=== PATIENT | male | born 1975 | race Caucasian/White ===

== ENCOUNTER 2020-05-27 07:26 | Outpatient (CLI) | payer BC ==
[2020-05-27] MEDS ORDERED: Gadobenate Dimeglumine 529 MG/1 ML (20ML VIAL) ONE (08:10)
[2020-05-27] MEDS ORDERED: Iopamidol 300 61% 50 ML VIAL FS ONE (08:10)
[2020-05-27] MEDS ORDERED: Lidocaine 1% PF 10 ML AMP ONE (08:10)
[2020-05-27] MEDS ORDERED: EPINEPHrine 1 MG/ML AMP ONE (08:10)
--- NOTE | 2020-05-27 08:59 | RAD ---
Right shoulder arthrogram fluoroscopic guided HISTORY: Internal derangement. FINDINGS: After explaining the procedure and answering all questions, the anterior aspect of the [facility] t shoulder was prepped and draped in usual sterile fashion. Sterile technique, buffered local anesthesia, fluoroscopic guidance, and an anterior approach were us ed to carefully advance the tip of a 22-gauge spinal needle to the joint capsule at the level of the humeral head. A total volume of 8 cc liquid containing normal saline, 1% lidocaine, iodinated contrast, and small a lang of gadolinium and epinephrine were then instilled into the joint capsule under fluoroscopic control. Needle was removed and spot images obtained. Contrast remained within the joint capsule. Patient tolerated the procedure well and was transferred to MRI in good condition for further imaging . IMPRESSION : Technically successful right shoulder arthrogram. MRI is pending.
--- NOTE | 2020-05-27 10:32 | MRI ---
MRI ARTHROGRAM OF THE RIGHT SHOULDER: INDICATION: Right shoulder pain and weakness. COMPARISON: Right shoulder arthrogram radiographs dated 05/27/2020. TECHNIQUE: Multiplanar, multisequence MR images were obtained of the right shoulder following intraarticular adm inistration of a dilute Gadolinium solution. Please see the separately dictated right shoulder arthr ogram for the details concerning the injection technique. FINDINGS: The rotator cuff is intact. A small amount of fluid is seen within the subacromial subdeltoid bursa. No muscular atrophy is evident. The AC joint is mildly degenerative. The acromion is a type 2 acr omion without evidence of an os acromiale. There is an abnormal tear involving the anterior superior , superior, posterior superior, and posterior glenoid labrum extending from approximately the 1 o'hemant ck through the 8 o'clock position. Glenohumeral articular surface is normal-appearing. The anterior inferior glenohumeral labral ligamentous complex is intact. The biceps tendon is located within the bicipital groove. The biceps anchor complex is intact. IMPRESSION: 1. Long segment superior labrum anterior to posterior tear extending from the anterior superior thro ugh the posterior inferior glenoid labrum. 2. A small amount of fluid in the subacromial subdeltoid bursa may reflect a mild bursitis. 3. Mild AC joint osteoarthrosis. 4. No evidence for rotator cuff tear. POS: BH
== END 2020-05-27 07:27 | disposition home or self-care (01) ==
LOC: RAD 07:26
PROVIDERS: ATTEND Orthopaedic Surgery
DX: M25.511 Pain in right shoulder (principal); M19.011 Primary osteoarthritis, right shoulder
CPT/HCPCS: 23350; A9577; J0171; J2001; Q9967

== ENCOUNTER 2020-08-25 06:48 | Outpatient (CLI) | payer BC ==
[2020-08-25 14:54] LABS: Anion Gap 12 mmol/L (10-20); BUN (Urea Nitrogen) 9 mg/dL (8.9-20.6); Calc. Creatinine Clearance 0 mL/min (70-130); Calcium 9.2 mg/dL (7.8-10.44); Carbon Dioxide 29 mmol/L (22-29); Chloride 104 mmol/L (98-107); Glucose 124 mg/dL (70-105); Potassium 3.9 mmol/L (3.5-5.1); Sodium 141 mmol/L (136-145)
[2020-08-25 15:09] LABS: #Eosinphils 0.2 10x3/uL (0.0-0.5); #Monocytes 0.7 10x3/uL (0.0-1.1); #Neutrophils 3.9 10x3/uL (1.5-8.4); %Basophils 0.4 % (0.0-2.0); %Eosinophils 2.1 % (0.0-6.0); %Lymphocytes 35.2 % (18.0-47.0); %Monocytes 9.1 % (0.0-10.0); %Neutrophils 53.1 % (40.0-75.0); Hemoglobin 14.9 g/dL (14.0-18.0); Mean Corpuscular HGB CONC 32.3 G/DL (32.0-36.0); Mean Corpuscular Hemoglobin 28.3 PG (27.0-33.0); Mean Corpuscular Volume 87.6 fl (80.0-100.0); Mean Platelet Volume 10.8 fl (7.4-10.4); Platelet Count 173 10x3/uL (130-400); RBC Distribution Width 12.5 % (11.5-14.5); Red Blood Cell (RBC) Count 5.26 10x6/uL (4.40-5.80); White Blood Cell (WBC) Count 7.3 10x3/uL (4.5-11.0)
[2020-08-26 02:23] LABS: SARS-CoV-2 MS2 Positive; SARS-CoV-2 N Gene Negative; SARS-CoV-2 S Gene Negative; SARS-CoV-2 by NAA Not Detected (NotDetected); SARS-CoV-2 orf1ab Negative
== END 2020-08-25 06:49 | disposition home or self-care (01) ==
LOC: LABBT 06:48
PROVIDERS: ATTEND Orthopaedic Surgery
DX: Z01.818 Encounter for other preprocedural examination (principal); S43.401A Unspecified sprain of right shoulder joint, initial encounter; Z20.822 Contact with and (suspected) exposure to COVID-19
CPT/HCPCS: 80048; 85025; 87635; 93005; 93010; U0003

== ENCOUNTER 2020-08-28 06:05 | Day surgery (SDC) | payer BC, OTHER ==
[2020-08-26 11:53] VITALS: BMI 31.1
[2020-08-28] MEDS ORDERED: Lidocaine 1% (PF) 30 ML VIAL ONE (07:06)
[2020-08-28] MEDS ORDERED: Midazolam HCl 2 mg/2 ml Vial ONE (07:06)
[2020-08-28] MEDS ORDERED: Fentanyl 100 MCG/2 ML VIAL ONE (07:06)
[2020-08-28] MEDS ORDERED: Promethazine HCl 25 MG/ML VIAL IM PRN (08:00)
[2020-08-28] MEDS ORDERED: Ondansetron PF 4 MG/2 ML Vial IVP PRN (08:00)
[2020-08-28] MEDS ORDERED: Zolpidem Tartrate 5 MG TAB PO PRN (08:00)
[2020-08-28] MEDS ORDERED: traMADol HCl 50 MG TAB PO PRN ×2 (08:00)
[2020-08-28] MEDS ORDERED: HYDROcodone/Acetaminophen 10/325 mg Tablet PO PRN ×2 (08:00)
[2020-08-28] MEDS ORDERED: Ropivacaine HCl/PF 250 ML in Premix Bag 1 BAG NERVE BLCK SCH (08:00)
[2020-08-28] MEDS ORDERED: Lidocaine 2% w/Epinephrine 1:200K 20 ML VIAL ONE (08:04)
[2020-08-28] MEDS ORDERED: Ropivacaine 0.2% 550 ML 550 ML NERVE BLCK SCH (09:30)
[2020-08-28] MEDS ORDERED: Rocuronium Bromide 10 MG/ML (10ML VIAL) ONE (09:44)
[2020-08-28] MEDS ORDERED: Ropivacaine 0.5% HCl/PF (150 MG/30 ML VIAL) ONE (09:44)
[2020-08-28] MEDS ORDERED: PROPOFOL 200 MG/20 ML VIAL ONE (09:44)
[2020-08-28] MEDS ORDERED: Dexamethasone 20 MG/5 ML VIAL ONE (09:44)
[2020-08-28] MEDS ORDERED: Ondansetron PF 4 MG/2 ML Vial ONE (09:44)
[2020-08-28] MEDS ORDERED: Ketorolac Tromethamine 30 MG/ML VIAL ONE (09:44)
[2020-08-28] MEDS ORDERED: Ketorolac Tromethamine 30 MG/ML VIAL IVP SCH (12:00)
--- NOTE | 2020-08-29 05:37 | OP ---
DATE OF PROCEDURE: 08/28/2020 PREOPERATIVE DIAGNOSIS: 1. Right shoulder degenerative labral tear to include superior and posterior superior labrum. 2. Small partial undersurface rotator cuff tear. POSTOPERATIVE DIAGNOSES: 1. Right shoulder degenerative labral tear to include superior and posterior superior labrum. 2. Small partial undersurface rotator cuff tear. PROCEDURES PERFORMED: 1. Right shoulder arthroscopy with debridement and shaving of degenerative labral tear as well as partial rotator cuff tear. 2. Open biceps tenodesis. TECH WRITER: Davey Tesfaye PA-C COMPLICATIONS: There were no complications. ESTIMATED BLOOD LOSS: Minimal. ANESTHESIA: The patient had general anesthetic as well as a preoperative block. IMPLANTS: We used a 7 x 20 BioComposite Bio-Tenodesis screw for fixation of the biceps. DISPOSITION: He did go to recovery room in stable condition. INDICATIONS: This is a 44-year-old male, who has had significant problems with his right shoulder for years. 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 DESCRIPTION OF PROCEDURE: After all appropriate consent forms were explained and signed, he was taken to the operative room and at this time was given general anesthetic. Once the level of anesthesia was appropriate, he was rolled into the left lateral decubitus position with all bony prominences well padded. An axillary roll was placed underneath the left axilla and a beanbag inflated to hold in this position. The arm was taken through full range of motion without any problem. The arm was then suspended with 15 pounds in standard fashion. The right shoulder and upper extremity were than prepped and draped in standard surgical fashion. Bony anatomical landmarks were drawn out and the subacromial space was infiltrated with lidocaine with epinephrine. Posterior portal was then established. Scope was placed into the shoulder joint. Anterior working portal was then made using a needle localization technique. Diagnostic arthroscopy commenced in the glenohumeral joint. The articular surface of the humeral head and glenoid were in excellent condition. There were no loose bodies noted in the axillary pouch. Subscapularis was found to be intact. The superior labrum was found to be completely degenerative and very atretic in appearance. Biceps tendon was found to be unstable at its insertion. This tearing continued around the posterior superior labrum. We also noted a small partial undersurface tear, felt to be the back part of supraspinatus and beginning of infraspinatus. At this time, anterior working portal was made and a shaver was introduced and the labrum as well as a partial cuff tear was debrided with a shaver back to a stable base. He has minimal thickness of the rotator cuff and the labrum was found overall to be in decent condition. Once this was debrided, again, the superior portion was just very significantly atretic and lacking substance. At this time, we then pierced the biceps tendon with an 18-gauge needle and placed the sutures through it. This was brought out the anterior portal. Arthroscopic scissors were used to cut the biceps tendon insertion. This area was then debrided with a shaver. We then repositioned in the subacromial space and made a lateral working portal. Shaver was used to remove the copious amount of bursa and any brisk venous bleeding was coagulated. No bony decompression was performed as no significant extra bone was noted. Rotator cuff was intact. Once this was done, the scope was removed and shoulder was drained. A 10 blade was used to make incision down through skin only and Bovie was used to coagulate any brisk venous bleeding. We then opened up our deltoid fascia sharply. We then dissected down with our fingers, split the deltoid fibers in line and got down to the underlying transverse humeral ligament. Once this was done, we were able to open up our bicipital groove and pull the tendon out into the wound. This was then sutured and the intra-articular portion was cut off and removed from the field. We then placed our pin, reamed with our reamer and placed a 7 x 20 Bio[employer]posite Bio-Tenodesis screw in standard fashion. Once this was done, we thoroughly irrigated and dried. We also had tied the sutures upon themselves so that the screw could not back out. We then thoroughly irrigated and dried. We allowed the deltoid to close upon itself. We ran a Vicryl to close our deltoid fascia and we then used 2-0 Vicryl and sutures to close our skin incision as well as our portals. At this time, a bulky sterile dressing was applied. The patient was awakened and taken to recovery room in stable condition. All counts were correct at the end of the case and he did receive preoperative IV antibiotics. Job ID: [id number]
== END 2020-08-28 11:03 | disposition home or self-care (01) ==
LOC: SDC 06:05
PROVIDERS: ATTEND Orthopaedic Surgery
PROC: 0LQ14ZZ Repair Right Shoulder Tendon, Percutaneous Endoscopic Approach (ICD-10-PCS; principal; 2020-08-28)
PROC: 3E0T3BZ Introduction of Anesthetic Agent into Peripheral Nerves and Plexi, Percutaneous Approach (ICD-10-PCS; principal; 2020-08-28)
PROC: 0LS30ZZ Reposition Right Upper Arm Tendon, Open Approach (ICD-10-PCS; principal; 2020-08-28)
DX: M75.111 Incomplete rotator cuff tear or rupture of right shoulder, not specified as traumatic (principal); M24.111 Other articular cartilage disorders, right shoulder; S43.431A Superior glenoid labrum lesion of right shoulder, initial encounter; G89.18 Other acute postprocedural pain; J45.909 Unspecified asthma, uncomplicated; Z79.899 Other long term (current) drug therapy; Z87.891 Personal history of nicotine dependence
CPT/HCPCS: A4306; C1713; J0690; J1100; J1885; J2001; J2250; J2405; J2704; J2795; J3010

== ENCOUNTER 2020-10-22 11:19 | Emergency (ER) | payer BC ==
--- NOTE | 2020-10-22 12:07 | RAD ---
Exam: Chest one view HISTORY:Chest pain and shortness of breath Comparison: 09/12/2016 FINDINGS: Cardiac silhouette: Normal Aorta: Unremarkable Pulmonary vessels: Normal Costophrenic angles: Clear LUNGS: Scattered interstitial and alveolar opacities. Pneumothorax: None Osseous abnormalities: None IMPRESSION: Scattered interstitial and alveolar opacities. Correlate for multi lobar pneumonia. Evalu ate patient's COVID status
[2020-10-22 12:11] LABS: #Lymphocytes 1.3 thou/uL (1.20-3.40); #Monocytes 0.6 thou/uL (0.11-0.59); #Neutrophils 3.1 thou/uL (1.40-6.50); %Basophils 0.3 % (0.0-1.0); %Eosinophils 0.5 % (0.0-10.0); %Lymphocytes 25.5 % (21.0-51.0); %Monocytes 11.9 % (0.0-10.0); %Neutrophils 61.7 % (42.0-75.0); Hemoglobin 15.3 g/dL (14.0-18.0); Mean Corpuscular HGB CONC 33.3 g/dL (32.0-36.0); Mean Corpuscular Hemoglobin 29.5 pg (27.0-31.0); Mean Corpuscular Volume 88.4 fL (78.0-98.0); Mean Platelet Volume 8.9 fL (7.4-10.4); Platelet Count 104 thou/uL (130-400); RBC Distribution Width 11.5 % (11.5-14.5); Red Blood Cell (RBC) Count 5.21 mill/uL (4.70-6.10)
[2020-10-22 12:27] LABS: ALT (SGPT) 10 U/L (8-55); AST (SGOT) 13 U/L (5-34); Albumin 4.2 g/dL (3.5-5.0); Alkaline Phosphatase 92 U/L (40-110); Anion Gap 12 mmol/L (10-20); BUN (Urea Nitrogen) 11 mg/dL (8.9-20.6); Bilirubin, Total 0.4 mg/dL (0.2-1.2); Calc. Creatinine Clearance 0 mL/min (70-130); Calcium 8.5 mg/dL (7.8-10.44); Carbon Dioxide 26 mmol/L (22-29); Chloride 104 mmol/L (98-107); Globulin 2.8 g/dL (2.4-3.5); Glucose 96 mg/dL (70-105); Platelet Morphology Comment Appears Decreased; Potassium 4.4 mmol/L (3.5-5.1); RBC Morphology Normal; Sodium 138 mmol/L (136-145)
--- NOTE | 2020-10-24 15:41 | EKG ---
Test Reason : CHEST PAIN Blood Pressure : / mmHG Vent. Rate : 082 BPM Atrial Rate : 082 BPM P-R Int : 148 ms QRS Dur : 092 ms QT Int : 370 ms P-R-T Axes : 071 089 023 degrees QTc Int : 432 ms Normal sinus rhythm Possible Left atrial enlargement Borderline ECG Confirmed by JUNIOR BARBOSA DO ([id number]), associate entertainment editor FRANKO GONGORA ([id number] on 10/24/2020 3:41:28 PM Referred By: Confirmed By:JUNIOR BARBOSA DO
== END 2020-10-22 13:50 | disposition home or self-care (01) ==
LOC: ERS 11:19
DX: U07.1 COVID-19 (principal); J12.82 Pneumonia due to coronavirus disease 2019
CPT/HCPCS: 71045; 80053; 84484; 85025; 85379; 93005

== ENCOUNTER 2020-11-04 11:10 | Outpatient (CLI) | payer BC | END 2020-11-04 11:11 | disposition home or self-care (01) | LOC: RAD 11:10 | PROVIDERS: ATTEND Family Medicine | DX: J18.9 Pneumonia, unspecified organism (principal) | CPT/HCPCS: 71046 ==

== ENCOUNTER 2021-06-04 08:48 | Outpatient (CLI) | payer BC | END 2021-06-04 08:49 | disposition home or self-care (01) | LOC: RAD 08:48 | PROVIDERS: ATTEND Internal Medicine Critical Care Medicine | DX: R06.00 Dyspnea, unspecified (principal) | CPT/HCPCS: 71046 ==

== ENCOUNTER 2024-04-29 06:06 | Day surgery (SDC) | payer BC ==
[2024-04-23 10:29] VITALS: BMI 29.8
[2024-04-29] MEDS ORDERED: Sodium Chloride 0.9% 100 ML ONE (06:59)
[2024-04-29] MEDS ORDERED: CEFAZOLIN 2 GM VIAL ONE (06:59)
[2024-04-29] MEDS ORDERED: Iopamidol 30 ML ONE (07:15)
[2024-04-29] MEDS ORDERED: fentaNYL PF 100 MCG/2 ML SYRINGE ONE (07:24)
[2024-04-29] MEDS ORDERED: PROPOFOL 20 ML ONE (07:24)
[2024-04-29] MEDS ORDERED: Midazolam HCl 2 mg/2 ml Vial ONE (07:24)
[2024-04-29] MEDS ORDERED: PHENYLEPHRINE-NS 100 MCG/ML 10 ML SYRINGE ONE (07:44)
[2024-04-29] MEDS ORDERED: Dexmedetomidine 200 MCG/2 ML VIAL ONE (07:45)
[2024-04-29] MEDS ORDERED: Dexamethasone 20 MG/5 ML VIAL ONE (08:00)
[2024-04-29] MEDS ORDERED: Ondansetron PF 4 MG/2 ML Vial ONE (08:00)
[2024-04-29] MEDS ORDERED: diphenhydrAMINE 50 MG/ML VIAL ONE (08:00)
[2024-04-29] MEDS ORDERED: Ketorolac Tromethamine 30 MG (1 mL) VIAL ONE (08:20)
[2024-05-08 16:37] LABS: CA Oxalate Dihydrate 20 % (.); CA Oxalate Monohydrate 80 % (.); Color Brown (.); Stone Weight 18 mg (.)
== END 2024-04-29 10:19 | disposition home or self-care (01) ==
LOC: SDC 06:06
PROVIDERS: ATTEND Urology
PROC: 0T778DZ Dilation of Left Ureter with Intraluminal Device, Via Natural or Artificial Opening Endoscopic (ICD-10-PCS; principal; 2024-04-29)
DX: N20.1 Calculus of ureter (principal); K58.9 Irritable bowel syndrome, unspecified; I10 Essential (primary) hypertension; Z90.89 Acquired absence of other organs; Z90.49 Acquired absence of other specified parts of digestive tract; Z88.8 Allergy status to other drugs, medicaments and biological substances
CPT/HCPCS: 74420; 82365; 88300; C1769; C2617; J1100; J1200; J1885; J2250; J2405; J2704; Q9967